=== PATIENT | male | born 1990 | race Caucasian/White ===

== ENCOUNTER 2020-04-25 12:54 | Emergency (ER) | payer OTHER ==
[~2020-04-25] VITALS: Ht 182.9 cm; Wt 104.3 kg
[~2020-04-25 12:54] MED LIST: AZITHROMYCIN 2250 MG PO; NOHOMEMEDICATIONS; PROAIR HFA8.5 GM IH
[2020-04-25 13:10] VITALS: BP 131/94
[2020-04-25] MEDS ORDERED: NORCO 5-325 TA1 EAC2 PO (13:59)
[2020-04-25] MEDS ORDERED: BACTRIM DS TAB1 EACH PO (13:59)
== END 2020-04-25 14:15 | disposition home or self-care (01) ==
LOC: M.ERS 12:54
DX: L02.31 Cutaneous abscess of buttock (principal)